=== PATIENT | female | born 1940 | race Caucasian/White ===

== ENCOUNTER 2024-03-25 11:46 | Inpatient (IN) | payer OTHER ==
[~2024-03-25] VITALS: Ht 162.6 cm; Wt 52.2 kg
[2024-03-25 12:03] VITALS: BP_SYST 210; PULSE 80; RESP 17; TEMP 97.8; O2SAT 98
[2024-03-25 12:19] LABS: BASOPHILS % (AUTO) 0.4 % (0.0-2.0); EOSINOPHILS % (AUTO) 0.2 % (0.0-4.0); HEMATOCRIT 43.2 % (36-48); HEMOGLOBIN 14.4 g/dL (12.0-16.0); LYMPHOCYTES # (AUTO) 0.7 K/uL (1.0-5.5); LYMPHOCYTES % (AUTO) 6.9 % (20.5-51.5); MEAN CORPUSCULAR HEMOGLOBIN 29 pg (27-31); MEAN CORPUSCULAR HGB CONC 33 % (32-36); MEAN CORPUSCULAR VOLUME 86 fL (79.0-98.0); MONOCYTES # (AUTO) 0.6 K/uL (0.0-1.0); NEUTROPHILS # (AUTO) 8.7 K/uL (1.8-7.7); NEUTROPHILS % (AUTO) 86.5 % (40.0-70.0); PLATELET COUNT (AUTO) 276 K/uL (130-430); RED BLOOD CELL COUNT(AUTO) 5.01 MIL/uL (4.2-6.2)
[2024-03-25 12:50] LABS: INR 1.4 (0.8-1.2); PROTHROMBIN TIME 13.9 SECS (9.5-12.5)
[2024-03-25] MEDS: cloNIDine HCL 0.1 MG TABLET PO ONE (12:52)
[2024-03-25] MEDS ORDERED: LOSA-412 PO (13:32)
[2024-03-25] MEDS ORDERED: LORA-258 PO (13:32)
[2024-03-25 13:36] LABS: ALANINE AMINOTRANSFERASE 22 U/L (12-78); ALBUMIN 3.7 g/dL (3.4-4.8); ANION GAP 10 (5-15); ASPARTATE AMINOTRANSFERASE 26 U/L (10-37); BILIRUBIN,DIRECT 0.2 mg/dL (0.0-0.3); CALCIUM 9.1 mg/dL (8.4-11.0); CARBON DIOXIDE 28 mmol/L (23-29); CHLORIDE 102 mmol/L (98-107); CREATINE KINASE, TOTAL 324 U/L (26-192); CREATININE 0.79 mg/dL (0.55-1.30); GLUCOSE 135 mg/dL (74-106); SODIUM SERUM 140 mmol/L (136-145); TOTAL BILIRUBIN 0.6 mg/dL (0.0-1.0); TOTAL PROTEIN, SERUM 7.4 g/dL (6.4-8.3); UREA NITROGEN, BLOOD 16 mg/dL (8-21)
[2024-03-25 13:41] LABS: POTASSIUM 2.8 mmol/L (3.5-5.1)
[2024-03-25 14:16] LABS: CKMB RELATIVE INDEX 2.8 (0.0-2.9)
[2024-03-25] MEDS: POTASSIUM CHLORIDE 20 MEQ/PKT PACKET PO ONE (14:59)
[2024-03-25] MEDS: NACL 0.9% 1,000 ML IV SCH (18:16)
[2024-03-25 19:59] LABS: CKMB RELATIVE INDEX 1.8 (0.0-2.9); CREATINE KINASE MB 5.2 ng/mL (0-3.6)
[2024-03-25 21:24] VITALS: BP_SYST 178; PULSE 64; RESP 18; TEMP 98.6
[2024-03-25 21:50] VITALS: O2SAT 97
[2024-03-25] MEDS: LOSARTAN POTASSIUM 25 MG TABLET PO SCH (22:27)
[2024-03-25 23:17] LABS: BILIRUBIN,URINE NEGATIVE (NEGATIVE); BLOOD, URINE 1+ (NEGATIVE); COLOR,URINE YELLOW (YELLOW); GLUCOSE,URINE NEGATIVE (NEGATIVE); KETONES,URINE NEGATIVE (NEGATIVE); LEUKOCYTE ESTERASE ,URINE NEGATIVE (NEGATIVE); NITRITE, URINE NEGATIVE (NEGATIVE); PH,URINE 6.5 (5.0-8.0); PROTEIN URINE NEGATIVE (NEGATIVE); UROBILINOGEN,URINE 0.2 (0.2-1.0)
[2024-03-25 23:46] LABS: CLARITY/URINE HAZY (CLEAR)
[2024-03-25 23:49] LABS: BACTERIA,URINE RARE /HPF (None Seen); WBC,URINE 0-3 /HPF (0-3)
[2024-03-26] VITALS (7 sets, daily range): BP systolic 134–194; PULSE 58–75; RESP 16–18; TEMP 97.4–98.7; O2SAT 96–100
[2024-03-26] MEDS: HALOPERIDOL LACTATE 5 MG/ML VIAL IM ONE (04:01)
[2024-03-26 08:00] LABS: BASOPHILS % (AUTO) 0.6 % (0.0-2.0); EOSINOPHILS # (AUTO) 0.2 K/uL (0.0-0.4); EOSINOPHILS % (AUTO) 2.6 % (0.0-4.0); HEMATOCRIT 38.8 % (36-48); HEMOGLOBIN 12.6 g/dL (12.0-16.0); LYMPHOCYTES # (AUTO) 1.7 K/uL (1.0-5.5); LYMPHOCYTES % (AUTO) 22.6 % (20.5-51.5); MEAN CORPUSCULAR HEMOGLOBIN 28 pg (27-31); MEAN CORPUSCULAR HGB CONC 32 % (32-36); MEAN CORPUSCULAR VOLUME 88 fL (79.0-98.0); MONOCYTES # (AUTO) 0.6 K/uL (0.0-1.0); MONOCYTES % (AUTO) 7.7 % (1.7-9.3); NEUTROPHILS % (AUTO) 66.5 % (40.0-70.0); PLATELET COUNT (AUTO) 244 K/uL (130-430); RED BLOOD CELL COUNT(AUTO) 4.43 MIL/uL (4.2-6.2); RED CELL DISTRIBUTION WIDTH 15.4 % (9.0-15.0); WHITE BLOOD COUNT (AUTO) 7.5 K/uL (4.8-10.8)
[2024-03-26 08:13] LABS: ALANINE AMINOTRANSFERASE 19 U/L (12-78); ALBUMIN 2.9 g/dL (3.4-4.8); ANION GAP 9 (5-15); ASPARTATE AMINOTRANSFERASE 22 U/L (10-37); CALCIUM 8.6 mg/dL (8.4-11.0); CARBON DIOXIDE 25 mmol/L (23-29); CHLORIDE 107 mmol/L (98-107); CREATININE 0.79 mg/dL (0.55-1.30); GLUCOSE 115 mg/dL (74-106); POTASSIUM 3.6 mmol/L (3.5-5.1); SODIUM SERUM 141 mmol/L (136-145); TOTAL BILIRUBIN 0.4 mg/dL (0.0-1.0); UREA NITROGEN, BLOOD 16 mg/dL (8-21)
[2024-03-26] MEDS: ENOXAPARIN SODIUM 30 MG/0.3 ML SYRINGE SUBCUT SCH (08:27)
[2024-03-26] MEDS: hydrALAZINE HCL 20 MG/ML VIAL IVP PRN (11:15)
[2024-03-26] MEDS: LOSARTAN POTASSIUM 25 MG TABLET PO ONE ×2 (11:16→14:36)
[2024-03-26] MEDS: amLODIPine BESYLATE 5 MG TABLET PO ONE (15:57)
[2024-03-26] MEDS ORDERED: ACETAMINOPHEN 325 MG TABLET PO PRN (16:30)
[2024-03-26] MEDS: MIRTAZAPINE 15 MG TABLET PO SCH (20:44)
[2024-03-26] MEDS: QUEtiapine FUMARATE 25 MG TABLET PO SCH (20:44)
[2024-03-26] MEDS: traZODone HCL 50 MG TABLET (DESYREL) PO PRN (23:29)
[2024-03-26] MEDS: hydrALAZINE HCL 25 MG TABLET PO PRN (23:30)
[2024-03-27 01:20] VITALS: BP_SYST 199; PULSE 89
[2024-03-27 04:59] LABS: BASOPHILS % (AUTO) 0.4 % (0.0-2.0); EOSINOPHILS # (AUTO) 0.1 K/uL (0.0-0.4); EOSINOPHILS % (AUTO) 1.3 % (0.0-4.0); HEMATOCRIT 41.4 % (36-48); HEMOGLOBIN 13.7 g/dL (12.0-16.0); LYMPHOCYTES # (AUTO) 1.5 K/uL (1.0-5.5); LYMPHOCYTES % (AUTO) 19.3 % (20.5-51.5); MEAN CORPUSCULAR HEMOGLOBIN 29 pg (27-31); MEAN CORPUSCULAR HGB CONC 33 % (32-36); MEAN CORPUSCULAR VOLUME 87 fL (79.0-98.0); MONOCYTES # (AUTO) 0.7 K/uL (0.0-1.0); MONOCYTES % (AUTO) 9.8 % (1.7-9.3); NEUTROPHILS # (AUTO) 5.3 K/uL (1.8-7.7); NEUTROPHILS % (AUTO) 69.2 % (40.0-70.0); PLATELET COUNT (AUTO) 254 K/uL (130-430); RED BLOOD CELL COUNT(AUTO) 4.74 MIL/uL (4.2-6.2); RED CELL DISTRIBUTION WIDTH 15.1 % (9.0-15.0); WHITE BLOOD COUNT (AUTO) 7.6 K/uL (4.8-10.8)
[2024-03-27 08:00] VITALS: O2SAT 97
[2024-03-27 08:29] LABS: ANION GAP 15 (5-15); CALCIUM 9.2 mg/dL (8.4-11.0); CARBON DIOXIDE 23 mmol/L (23-29); CHLORIDE 102 mmol/L (98-107); CHOLESTEROL 181 mg/dL (<200); GLUCOSE 123 mg/dL (74-106); HDL CHOLESTEROL 53 mg/dL (>55); SODIUM SERUM 140 mmol/L (136-145); THYROID STIMULATING HORMONE 1.26 uIu/mL (0.34-4.82); TRIGLYCERIDES 106 mg/dL (30-150); UREA NITROGEN, BLOOD 15 mg/dL (8-21)
[2024-03-27] MEDS: amLODIPine BESYLATE 5 MG TABLET PO SCH (08:32)
[2024-03-27] MEDS: MEMANTINE HCL 5 MG TABLET PO SCH (08:32)
[2024-03-27] MEDS: CALCIUM CARBONATE/VITAMIN D3 1 TAB TABLET PO SCH (08:32)
[2024-03-27] MEDS: LOSARTAN POTASSIUM 25 MG TABLET PO SCH (08:33)
[2024-03-27 12:46] VITALS: BP_SYST 172; PULSE 90; RESP 17; TEMP 98.5; O2SAT 98
[2024-03-27] MEDS: POTASSIUM CHLORIDE 20 MEQ TABLET.ER PO ONE ×2 (13:30→14:33)
[2024-03-27 16:02] VITALS: BP_SYST 164; PULSE 82; RESP 18; TEMP 98.8; O2SAT 97
[2024-03-27 18:21] VITALS: BP_SYST 143; PULSE 95; RESP 17; O2SAT 98
[2024-03-27 20:00] VITALS: BP_SYST 166; PULSE 89; RESP 16; TEMP 98.4; O2SAT 98
[2024-03-27] MEDS: HALOPERIDOL LACTATE 5 MG/ML VIAL IM ONE (23:43)
[2024-03-28 00:20] VITALS: BP_SYST 162; PULSE 100; RESP 16; TEMP 98.4; O2SAT 96
[2024-03-28 05:06] LABS: ANION GAP 10 (5-15); CALCIUM 9.5 mg/dL (8.4-11.0); CARBON DIOXIDE 26 mmol/L (23-29); CHLORIDE 100 mmol/L (98-107); CREATININE 0.83 mg/dL (0.55-1.30); GLUCOSE 154 mg/dL (74-106); POTASSIUM 3.6 mmol/L (3.5-5.1); SODIUM SERUM 136 mmol/L (136-145); UREA NITROGEN, BLOOD 19 mg/dL (8-21)
[2024-03-28] MEDS ORDERED: HALOPERIDOL LACTATE 5 MG/ML VIAL IM PRN (07:30)
[2024-03-28 08:00] VITALS: BP_SYST 167; PULSE 83; RESP 18; TEMP 97.8; O2SAT 96
[2024-03-28] MEDS: LOSARTAN POTASSIUM 50 MG TABLET (COZAAR) PO SCH (09:05)
[2024-03-28 12:00] VITALS: BP_SYST 172; PULSE 83; RESP 18; TEMP 98.1; O2SAT 97
[2024-03-28] MEDS ORDERED: AMLO2.5T2 PO (12:48)
[2024-03-28] MEDS ORDERED: LOSA-413 PO (12:48)
[2024-03-28 16:00] VITALS: BP_SYST 153; PULSE 83; RESP 18; TEMP 97.4; O2SAT 97
[2024-03-28 16:25] VITALS: BP_SYST 168; PULSE 82; RESP 18; TEMP 98.2; O2SAT 97
== END 2024-03-28 17:15 | disposition home health service (06) | DRG 565 ==
LOC: SED 11:46 → STU 15:25 → SMU 03-26 23:26
PROVIDERS: ADMIT Student in an Organized Health Care Education/Training Program; ATTEND Student in an Organized Health Care Education/Training Program
DX: T79.6XXA Traumatic ischemia of muscle, initial encounter (principal); M87.851 Other osteonecrosis, right femur; M25.462 Effusion, left knee; M16.11 Unilateral primary osteoarthritis, right hip; E87.6 Hypokalemia; E78.5 Hyperlipidemia, unspecified; I35.1 Nonrheumatic aortic (valve) insufficiency; F03.90 Unspecified dementia, unspecified severity, without behavioral disturbance, psychotic disturbance, mood disturbance, and anxiety; M17.12 Unilateral primary osteoarthritis, left knee; R55 Syncope and collapse; I10 Essential (primary) hypertension; Z88.8 Allergy status to other drugs, medicaments and biological substances; Z79.899 Other long term (current) drug therapy; Z88.5 Allergy status to narcotic agent; Z91.013 Allergy to seafood; W18.30XA Fall on same level, unspecified, initial encounter
CPT/HCPCS: 36415; 70450-TC; 71045; 72192-TC; 73564; 80048; 80053; 80061; 80076; 81000; 81001; 81015; 82550; 82553; 83037; 83605; 84443; 84484; 85025; 85610; 85730; 93005; 93306; 96360; 97110-GP; 97116-GP; 97530-GP; 99285; G0378; J0360; J1630; J1650